=== PATIENT | male | born 1985 | race African-American/Black ===

== ENCOUNTER 2018-07-04 10:43 | Inpatient (IN) | payer OTHER ==
[2018-07-04] MEDS ORDERED: Morphine 4 MG/ML VIAL ONE (12:01)
[2018-07-04 12:22] LABS: #Lymphocytes 0.8 thou/uL (1.20-3.40); #Monocytes 0.6 thou/uL (0.11-0.59); #Neutrophils 7.2 thou/uL (1.40-6.50); %Basophils 0.1 % (0.0-1.0); %Eosinophils 0.2 % (0.0-10.0); %Lymphocytes 9.3 % (21.0-51.0); %Neutrophils 83.3 % (42.0-75.0); Hemoglobin 12.6 g/dL (14.0-18.0); Mean Corpuscular HGB CONC 32.2 g/dL (32.0-36.0); Mean Corpuscular Hemoglobin 30.2 pg (27.0-31.0); Mean Corpuscular Volume 93.8 fL (78.0-98.0); Mean Platelet Volume 8.8 fL (7.4-10.4); Platelet Count 179 thou/uL (130-400); RBC Distribution Width 10.9 % (11.5-14.5); Red Blood Cell (RBC) Count 4.15 mill/uL (4.70-6.10); White Blood Cell (WBC) Count 8.6 thou/uL (4.8-10.8)
[2018-07-04 12:30] LABS: INR-International Normal Ratio 1.1; PTT 28.3 SEC (22.9-36.1); Prothrombin Time 14.3 SEC (12.0-14.7)
[2018-07-04 12:46] LABS: Anion Gap 12 mmol/L (10-20); BUN (Urea Nitrogen) 10 mg/dL (8.9-20.6); Calc. Creatinine Clearance 0 mL/min (70-130); Calcium 8.7 mg/dL (7.8-10.44); Carbon Dioxide 24 mmol/L (22-29); Chloride 104 mmol/L (98-107); Estimated GFR-MDRD Greater than 90; Glucose 126 mg/dL (70-105); Potassium 4.5 mmol/L (3.5-5.1); Sodium 135 mmol/L (136-145)
[2018-07-04] MEDS ORDERED: CEFAZOLIN/Water 2 GM/20 ML SYRINGE SLOW IVP SCH ×2 (13:00→20:30)
[2018-07-04] MEDS ORDERED: Ondansetron PF 4 MG/2 ML Vial ONE (13:17)
[2018-07-04] MEDS ORDERED: ePHEDrine/0.9% NaCl/PF SYRINGE 50 mg/10 ml ONE (13:17)
[2018-07-04] MEDS ORDERED: PROPOFOL 200 MG/20 ML VIAL ONE (13:17)
[2018-07-04] MEDS ORDERED: Metoclopramide HCl 10 MG/2 ML VIAL ONE (13:17)
[2018-07-04] MEDS ORDERED: Glycopyrrolate 0.2 MG/ML 5 ML SYRINGE ONE (13:17)
[2018-07-04] MEDS ORDERED: PHENYLEPHRINE-NS 100 MCG/ML 10 ML SYRINGE ONE ×2 (13:17→19:30)
[2018-07-04] MEDS ORDERED: Dexamethasone 20 MG/5 ML VIAL ONE (13:17)
[2018-07-04] MEDS ORDERED: Naloxone HCl 0.4 mg/ml Vial ONE (13:17)
[2018-07-04] MEDS ORDERED: Lidocaine 1% PF 5 ML VIAL ONE (13:17)
--- NOTE | 2018-07-04 13:32 | RAD ---
2 VIEWS LEFT FEMUR: Date: 07/04/18 COMPARISON: None. HISTORY: Left femur deformity and pain. FINDINGS: Two views of the left femur show a spiral fracture of the proximal aspect of the femoral diaphysis wi th a central butterfly fragment. This is moderately displaced. No dislocation of the knee or hip seen . IMPRESSION: Proximal left femur fracture. POS: [facility]
--- NOTE | 2018-07-04 13:34 | RAD ---
CHEST ONE VIEW: History: Fall Comparison: None FINDINGS: Lungs are clear. No pneumothorax or effusion. Cardiac silhouette and mediastinal contours are within normal limits. IMPRESSION: No acute intrathoracic abnormality. POS: OFF
--- NOTE | 2018-07-04 13:34 | CON ---
DATE OF CONSULTATION: 07/04/2018 REQUESTING PHYSICIAN: Kameron Chao DO. CONSULTING PHYSICIAN: Ric Frazier M.D. REASON FOR CONSULTATION: Left hip fracture. HISTORY OF PRESENT ILLNESS: This is a 33-year-old male who is an inmate presented this morning after a transfer from [facility]. Patient states that he lives in the holiday unit in [place], [place]. He was sleeping on his top bunk when he had a dream about an animal chasing him an d rolled out of the bunk fell landing onto his left side. He was found to have a left subtrochanteri c femur fracture upon further evaluation once the Emergency Department and was transferred here for [facility] level of care. Patient denies any other injury at the time of the fall. He denies hitting his head. He denies any loss of consciousness. He denies any numbness or tingling in the left lower ex tremity. His pain is made worse by movement and improved with rest. PAST MEDICAL HISTORY: The patient denies any past medical history. PAST SURGICAL HISTORY: The patient denies any past surgical history. SOCIAL HISTORY: The patient resides in the holiday unit in [place], [place]. He denies any alcohol use, tobacco use or illicit drug use. He does report a history of cigarette smoking and marijuana u se before he was incarcerated. FAMILY HISTORY: Reviewed and noncontributory. ALLERGIES: No known drug allergies. REVIEW OF SYSTEMS: Ten point review of systems otherwise negative except for as stated above. PHYSICAL EXAMINATION: VITAL SIGNS: Blood pressure of 153/89, pulse of 86, respiratory rate of 18, temperature 98.7 degrees . GENERAL: The patient is awake and alert. He is in no acute distress. He is lying supine on the ER stretcher. There is a security present in the room and at the bedside. He is handcuffed. He is ple asant and cooperative with exam findings today. He answers all questions appropriately. HEENT: Normocephalic, atraumatic. NECK: Supple. Trachea midline. Breathing is nonlabored. EXTREMITIES: The left lower extremity was evaluated. There is a knee immobilizer intact. Patient h as a palpable dorsalis pedis pulse. He is able to flex and extend at the ankle and move all toes. E HL is intact. Sensation intact distally. Skin intact overlying the fracture site. All other extrem ities examined and there are no other signs of trauma. RADIOGRAPHIC FINDINGS: Today including 2 views of the left femur show evidence of a proximal third a nd subtrochanteric fracture that appears segmental and spiral in nature. This fracture fragment is d isplaced. ASSESSMENT: Left proximal femur fracture. PLAN: At this point, we have discussed surgical intervention with the patient in order to restore fu nction and preserve his anatomy in order for him to be able to mobilize. Risks, benefits, and altern atives of the surgery discussed at length with the patient today. These include but are not limited to infection, bleeding, neurovascular injury, nonunion and malunion. He is amenable to go forward [facility] surgery. Case discussed and agreed in length with Dr. Frazier as well today. The patient will be admitted to [facility]. We will plan for surgery this afternoon. He will remain n.p.o.
[2018-07-04] MEDS ORDERED: Ondansetron ODT 4 MG TAB PO PRN (13:54)
[2018-07-04] MEDS ORDERED: Dextrose 50% Abboject 50 ML SYRINGE SLOW IVP PRN (13:54)
[2018-07-04] MEDS ORDERED: Ondansetron PF 4 MG/2 ML Vial IVP PRN (13:54)
[2018-07-04] MEDS ORDERED: Cyclobenzaprine 10 MG TAB PO PRN (13:54)
[2018-07-04] MEDS ORDERED: Dextrose 5% in Water 1,000 ML IV PRN (13:54)
[2018-07-04] MEDS ORDERED: CEFAZOLIN/Water 2 GM/20 ML SYRINGE ONE (16:49)
[2018-07-04] MEDS ORDERED: Fentanyl 100 MCG/2 ML VIAL ONE ×3 (17:13→18:43)
--- NOTE | 2018-07-04 17:45 | HP ---
DATE OF ADMISSION: 07/04/2018 ATTENDING PHYSICIAN: Dr. Montez. TRAUMA ACTIVATION: Not applicable. HISTORY OF PRESENT ILLNESS: Harley Rucker is a 33-year-old gentleman who presented to [facility] Room status post fall from bunk bed. Per patient, he fell out of his top bunk bed earlier this morning landing on his left side. The patient had immediate onset of left hip pain. He was brought to [facility] and evaluated and found to have a proximal left femur fracture. The pa hattie has been seen and evaluated by Orthopedic Surgery and Trauma Services was asked to admit. Upon my evaluation, the patient states the pain has been well controlled. He vocalizes no other complain t. ALLERGIES: None. HOME MEDICATIONS: None. CHRONIC MEDICAL ILLNESSES: The patient denies. PAST SURGICAL HISTORY: The patient denies. SOCIAL HISTORY: The patient is a prisoner. Denies tobacco, alcohol, or illicit drug use. FAMILY HISTORY: Significant for grandmother with breast cancer and father with prostate cancer. REVIEW OF SYSTEMS: A 10-point review of systems was performed by the team and negative except as ind icated in the HPI. PHYSICAL EXAMINATION: VITAL SIGNS: Include blood pressure 142/86, pulse 82, respirations 16, O2 sat 98% on room air. GENERAL: Well-developed male in no acute distress, resting in bed. HEAD: Normocephalic, atraumatic. EYES: Pupils are PERRL. Extraocular movements are intact. NECK: Supple. Trachea is midline. CHEST/PULMONARY: Atraumatic. Normal work of breathing, symmetric rise. LUNGS: Clear to auscultation bilaterally. CARDIOVASCULAR: Regular rate and rhythm. GASTROINTESTINAL: Abdomen is soft, nontender, nondistended, atraumatic. Bowel sounds are positive. MUSCULOSKELETAL: Bilateral upper extremities appear within normal limits. Right lower extremity anali ears within normal limits. Left lower extremity is shortened and externally rotated with range of mo tion limited secondary to pain. Pulses are 2+ bilaterally. NEUROLOGIC: GCS is 15 and no focal deficit is noted. LABORATORY DATA: WBC 8.6, hemoglobin 12.6, hematocrit 39.0 and platelet count 179. INR 1.1. Sodium 135, potassium 4.5, chloride 104, carbon dioxide 24, BUN 10, creatinine 0.87, glucose 126. RADIOLOGIC FINDINGS: Chest x-ray without acute cardiopulmonary process. Femur x-ray was read by [facility] as having a spiral comminuted proximal femur fracture. ASSESSMENT: 1. Status post fall approximately 5-6 feet. 2. Left femur fracture. 3. Acute traumatic pain. PLAN: Admit to Trauma Services. Patient's last p.o. intake was approximately 10:00 p.m. last night. Orthopedic Surgery plans for operative intervention to his injury later today. Perioperative pain management with p.o. and IV analgesics. Postoperative PT and OT. Gentle IV fluid hydration. Plan o f care was discussed with the patient at bedside. All questions were answered at the time of this di ctation. Trauma attending has been notified of admission.
[2018-07-04] MEDS ORDERED: traMADol HCl 50 MG TAB PO SCH (18:00)
[2018-07-04] MEDS ORDERED: Albumin 5% 500 ML ONE (18:58)
[2018-07-04 19:02] LABS: Hemoglobin 10.9 g/dL (14.0-18.0)
[2018-07-04] MEDS ORDERED: HYDROmorphone 2 MG/ML VIAL ONE (19:04)
[2018-07-04] MEDS ORDERED: Meperidine HCl/PF 25 MG/ML VIAL SLOW IVP PRN ×2 (19:42→20:30)
[2018-07-04] MEDS ORDERED: Promethazine HCl 25 MG/ML VIAL SLOW IVP PRN ×2 (19:42→20:31)
[2018-07-04] MEDS ORDERED: HYDROmorphone 2 MG/ML VIAL SLOW IVP PRN ×2 (19:42→20:30)
[2018-07-04] MEDS ORDERED: Promethazine HCl 25 MG/ML VIAL IM PRN ×2 (19:42→20:31)
--- NOTE | 2018-07-04 21:22 | RAD ---
LEFT FEMUR INTRAOPERATIVE FLUOROSCOPY TWO VIEWS: 07/04/18 HISTORY: Fracture. FINDINGS/IMPRESSION: Intraoperative fluoroscopy was provided for internal fixation as performed by Dr. Frazier. Multiple sp ot fluoroscopic images show long quin and compression nail transfixing the femur. POS: [facility]
--- NOTE | 2018-07-04 21:38 | HP ---
HISTORY OF PRESENT ILLNESS: A 33-year-old black male fell off his monk in group home, fractured his left femur, seen in the emergency room and evaluated, seen by KULWINDER Rodriguez. ALLERGIES: None. TOBACCO: None. ALCOHOL: None. MEDICATIONS: None. PAST SURGICAL AND MEDICAL HISTORY: Noncontributory. PHYSICAL EXAMINATION: VITAL SIGNS: Heart rate 94, saturation 96%, respirations 18, temperature 98.7 degrees. LUNGS: Clear to auscultation. CARDIAC: Regular rate and rhythm without murmur or gallop. ABDOMEN: Soft, nontender. EXTREMITIES: Splint in left femur. Palpable pedal pulses. Neurovascular intact. ASSESSMENT AND PLAN: Left femur fracture, open reduction internal fixation per Dr. Frazier. DISPOSITION: Mobility per Dr. Frazier.
[2018-07-04] MEDS: Sodium Chloride 0.9% 1,000 ML IV SCH ×2 (21:48→22:51)
[2018-07-04] MEDS: Ketorolac Tromethamine 30 MG/ML VIAL IVP SCH (21:48)
[2018-07-04] MEDS: Acetaminophen 500 MG TAB PO SCH (21:48)
[2018-07-04 22:40] VITALS: BMI 23.1
[2018-07-04] MEDS: CEFAZOLIN 2 GM/50 ML-DEXTROSE 2 GM in Premix Bag 1 BAG IVPB SCH (23:30)
--- NOTE | 2018-07-05 00:11 | OP ---
PREOPERATIVE DIAGNOSIS: Comminuted femoral shaft fracture. POSTOPERATIVE DIAGNOSIS: Comminuted femoral shaft fracture. PROCEDURES: ORIF, left femur intramedullary nail. SURGEON: Ric Frazier M.D. ROLLER ENGRAVER: Flavia CUENCA. IMPLANT USED: Synthes trochanteric femoral nail and 3 cables. BLOOD LOSS: 1400. BLOOD RETURNED: None. COMPLICATIONS: None. DESCRIPTION OF PROCEDURE: Patient was taken to operating room, where general anesthesia was induced. He was placed on the fracture table. This was a very complex fracture extending from the lesser tr ochanter all the way down to below the isthmus of the femur. There was no way to reduce this by ____ _ was markedly displaced. After prepping and draping and receiving preoperative Ancef, I made an exp osure laterally. I did a subvastus approach. With some difficulty, I was able to free the fragments up and with a combination of traction, rotation, direct manipulation, implants fragments. I was abl e to reduce the fragments and hold them with cerclage wires. Once this was performed, I made a stand vicky approach to the greater trochanter. Dissection was carried down to the greater trochanter. I pa lpated trochanter, opened it with a reamer and then reamed up to 13 mm. I checked on biplane fluoros copy to make sure the fragments did not displace. I then inserted the nail and placed the proximal a nd distal screws in the usual fashion. Irrigation was performed. Hemostasis was obtained as well as possible. The fascia was closed with #2 Vicryl, subcutaneously was closed with 2-0 Vicryl, the skin was closed with david. Sterile dressings applied. There were no complications.
[2018-07-05] MEDS: traMADol HCl 50 MG TAB PO SCH ×5 (00:15→23:32)
[2018-07-05] MEDS: Ketorolac Tromethamine 30 MG/ML VIAL IVP SCH ×2 (00:16→05:34)
[2018-07-05] MEDS: Acetaminophen 500 MG TAB PO SCH ×5 (00:16→23:32)
[2018-07-05] MEDS: Morphine 2 MG/ML SYRINGE IVP PRN ×2 (01:54→08:26)
[2018-07-05] MEDS ORDERED: Dextrose 5% in Water 1,000 ML IV PRN (03:45)
[2018-07-05] MEDS ORDERED: Dextrose 50% Abboject 50 ML SYRINGE SLOW IVP PRN (03:46)
[2018-07-05] MEDS ORDERED: Ondansetron ODT 4 MG TAB PO PRN (03:49)
[2018-07-05] MEDS ORDERED: Ondansetron PF 4 MG/2 ML Vial IVP PRN (03:50)
[2018-07-05] MEDS ORDERED: Sodium Chloride 0.9% 1,000 ML IV SCH (04:00)
[2018-07-05 06:31] LABS: #Lymphocytes 1.2 thou/uL (1.20-3.40); %Basophils 0.2 % (0.0-1.0); %Eosinophils 0.1 % (0.0-10.0); %Lymphocytes 7.9 % (21.0-51.0); %Monocytes 6.8 % (0.0-10.0); Hemoglobin 6.8 g/dL (14.0-18.0); Mean Corpuscular HGB CONC 32.3 g/dL (32.0-36.0); Mean Corpuscular Hemoglobin 30.6 pg (27.0-31.0); Mean Corpuscular Volume 94.9 fL (78.0-98.0); Mean Platelet Volume 8.6 fL (7.4-10.4); PLT Morphology Comment Appears Adequate; Platelet Count 160 thou/uL (130-400); RBC Distribution Width 10.8 % (11.5-14.5); RBC Morphology Normal; Red Blood Cell (RBC) Count 2.23 mill/uL (4.70-6.10); White Blood Cell (WBC) Count 15.3 thou/uL (4.8-10.8)
[2018-07-05] MEDS: CEFAZOLIN 2 GM/50 ML-DEXTROSE 2 GM in Premix Bag 1 BAG IVPB SCH ×2 (08:26→16:55)
[2018-07-05] MEDS: Ibuprofen 800 MG TAB PO SCH ×2 (10:23→18:10)
[2018-07-05] MEDS: Cyclobenzaprine 10 MG TAB PO PRN (10:23)
[2018-07-05] MEDS: Ferrous Sulfate 325 MG TAB PO SCH ×2 (10:23→16:55)
[2018-07-05] MEDS: Ascorbic Acid 500 mg Chewable Tablet PO SCH ×2 (10:23→22:05)
[2018-07-05] MEDS ORDERED: Senokot S 8.6-50 MG TAB PO SCH (11:30)
[2018-07-05] MEDS ORDERED: Polyethylene Glycol 3350 17 GM Packet PO SCH (11:30)
--- NOTE | 2018-07-05 13:31 | PRG ---
DATE OF SERVICE: 07/05/2018 SUBJECTIVE: This is a 33-year-old male status post fall resulting in left femur fracture, postop day #1. Overnight, pain was controlled; however, he did require IV pain medication at that time. This morning, the patient states that his pain is a 7/10 consistently despite pain medications; however, t he patient appears somewhat drowsy upon my evaluation. Additionally, the patient's hemoglobin droppe d to 6.8 this morning. Otherwise, he vocalizes no complaint. OBJECTIVE: VITAL SIGNS: Temperature 98.4, pulse 115, respirations 16, O2 sat 98% on room air, blood pressure 13 1/84. GENERAL: Resting in bed, in no acute distress. PULMONARY: Normal work of breathing, symmetric rise. LUNGS: Clear to auscultation bilaterally. CARDIOVASCULAR: Tachycardic, no obvious murmurs, rubs or gallops. GASTROINTESTINAL: Abdomen is soft, nontender, nondistended. MUSCULOSKELETAL: Moves all extremities x4. Pulses are 2+ bilaterally. NEUROLOGIC: No focal deficit is noted. LABORATORY DATA: WBC 15.3, hemoglobin 6.8, hematocrit 21.1, platelet count 160. Sodium 135, potassi um 4.5, chloride 104, carbon dioxide 24, BUN 10, creatinine 0.87, glucose 126. ASSESSMENT: 1. Status post fall greater than 3 feet. 2. Left femoral fracture, postop day #1. 3. Acute traumatic pain. 4. Acute blood loss anemia, symptomatic. PLAN: Transfuse 2 units of PRBC. Initiate vitamin C and iron supplementation. Recheck a.m. labs. Postop PT and OT to be initiated. Importance of adhering to pain regimen discussed as well as import ance of participation in physical therapy. If patient's pain is uncontrolled and he is unable to par ticipate in therapy, we will increase pain regimen at that time. The patient has been discussed with trauma attending.
[2018-07-05] MEDS: Gabapentin 300 MG CAP PO SCH ×2 (16:55→22:06)
[2018-07-05] MEDS: Senokot S 8.6-50 MG TAB PO SCH (22:06)
[2018-07-06] MEDS: Ibuprofen 800 MG TAB PO SCH ×3 (02:19→17:30)
[2018-07-06] MEDS: traMADol HCl 50 MG TAB PO SCH ×4 (05:13→23:34)
[2018-07-06] MEDS: Acetaminophen 500 MG TAB PO SCH ×4 (05:14→23:33)
[2018-07-06 06:40] LABS: #Eosinphils 0.1 thou/uL (0.0-0.7); #Lymphocytes 2.2 thou/uL (1.20-3.40); #Monocytes 0.8 thou/uL (0.11-0.59); #Neutrophils 5.9 thou/uL (1.40-6.50); %Basophils 0.3 % (0.0-1.0); %Eosinophils 1.1 % (0.0-10.0); %Monocytes 9.1 % (0.0-10.0); %Neutrophils 65.6 % (42.0-75.0); Hemoglobin 7.2 g/dL (14.0-18.0); Mean Corpuscular Hemoglobin 30.5 pg (27.0-31.0); Mean Corpuscular Volume 92.4 fL (78.0-98.0); Mean Platelet Volume 9.1 fL (7.4-10.4); PLT Morphology Comment Appears Decreased; Platelet Count 115 thou/uL (130-400); RBC Distribution Width 11.6 % (11.5-14.5); Red Blood Cell (RBC) Count 2.38 mill/uL (4.70-6.10)
[2018-07-06] MEDS: Gabapentin 300 MG CAP PO SCH ×3 (08:47→20:11)
[2018-07-06] MEDS: Polyethylene Glycol 3350 17 GM Packet PO SCH ×2 (08:47→08:56)
[2018-07-06] MEDS: Senokot S 8.6-50 MG TAB PO SCH ×2 (08:47→20:10)
[2018-07-06] MEDS: Ascorbic Acid 500 mg Chewable Tablet PO SCH ×2 (08:47→20:11)
[2018-07-06] MEDS: Ferrous Sulfate 325 MG TAB PO SCH ×2 (08:48→17:30)
[2018-07-06] MEDS ORDERED: Polyethylene Glycol 3350 17 GM Packet PO SCH (11:13)
[2018-07-06] MEDS: Cyclobenzaprine 10 MG TAB PO PRN (15:18)
--- NOTE | 2018-07-06 18:27 | PRG ---
DATE OF SERVICE: 07/06/2018 SUBJECTIVE: This is a 33-year-old male postop day #2 status post open reduction and internal fixatio n of femur fracture. There were no acute overnight events. The patient is status post 2 units PRBC. His hemoglobin remains low this morning and he is tachycardic. He states that his pain is controll ed at rest, but is 9/10 with activity. OBJECTIVE: VITAL SIGNS: Temperature 98.2, pulse 102, respirations 18, O2 sat 93%-95% on room air, blood pressur e 110/68. GENERAL: Well-developed male in no acute distress, resting in bed. PULMONARY: Normal work of breathing. Symmetric rise. CARDIOVASCULAR: Regular rate and rhythm. GASTROINTESTINAL: Abdomen is soft, nontender, nondistended. MUSCULOSKELETAL: Moves all extremities x4. NEUROLOGIC: No focal deficit is noted. LABORATORY DATA: WBC 9.0, hemoglobin 7.2, hematocrit 22.0, platelet count 115. ASSESSMENT: 1. Status post fall greater than 3-5 feet. 2. Acute traumatic pain. 3. Left femur fractures. 4. Acute blood loss anemia, symptomatic. PLAN: The patient was reminded that he does have p.r.n. pain medications for pain, particularly musc le relaxants as his primary complaint was muscle cramping or what sounded like muscle cramping. Don sfuse 1 unit of PRBC for symptomatic anemia. Recheck a.m. labs. Importance of adhering to bowel reg imen in the setting of limited mobility and narcotic pain medications impressed upon the patient. He vocalizes understanding. If hemoglobin and hematocrit are improved tomorrow and pain is controlled, patient will likely be a candidate for discharge. Plan of care was discussed with the patient and t he guards at bedside. All questions were answered at the time of this dictation. Of note, the patie nt should not be assigned to a top bunk when he returns in residential until cleared by Orthopedic Surgery . Patient was discussed with trauma attending.
[2018-07-07] MEDS: Ibuprofen 800 MG TAB PO SCH ×3 (01:47→18:16)
[2018-07-07] MEDS: Acetaminophen 500 MG TAB PO SCH ×4 (05:54→23:38)
[2018-07-07] MEDS: traMADol HCl 50 MG TAB PO SCH ×4 (05:54→23:38)
[2018-07-07 06:08] LABS: #Eosinphils 0.2 thou/uL (0.0-0.7); #Lymphocytes 1.7 thou/uL (1.20-3.40); #Monocytes 0.5 thou/uL (0.11-0.59); %Basophils 0.4 % (0.0-1.0); %Eosinophils 2.3 % (0.0-10.0); %Lymphocytes 23.4 % (21.0-51.0); %Monocytes 6.4 % (0.0-10.0); %Neutrophils 67.6 % (42.0-75.0); Hemoglobin 7.6 g/dL (14.0-18.0); Mean Corpuscular HGB CONC 32.5 g/dL (32.0-36.0); Mean Corpuscular Hemoglobin 30.2 pg (27.0-31.0); Mean Corpuscular Volume 93.1 fL (78.0-98.0); Mean Platelet Volume 8.2 fL (7.4-10.4); Platelet Count 136 thou/uL (130-400); RBC Distribution Width 11.7 % (11.5-14.5); Red Blood Cell (RBC) Count 2.51 mill/uL (4.70-6.10); White Blood Cell (WBC) Count 7.4 thou/uL (4.8-10.8)
[2018-07-07 06:30] LABS: Anion Gap 8 mmol/L (10-20); BUN (Urea Nitrogen) 9 mg/dL (8.9-20.6); Calc. Creatinine Clearance 144 mL/min (70-130); Carbon Dioxide 32 mmol/L (22-29); Chloride 101 mmol/L (98-107); Estimated GFR-MDRD Greater than 90; Glucose 129 mg/dL (70-105); Magnesium 1.7 mg/dL (1.6-2.6); Phosphorus 2.9 mg/dL (2.3-4.7); Potassium 3.3 mmol/L (3.5-5.1); Sodium 138 mmol/L (136-145)
[2018-07-07] MEDS: Senokot S 8.6-50 MG TAB PO SCH ×2 (08:55→20:48)
[2018-07-07] MEDS: Ascorbic Acid 500 mg Chewable Tablet PO SCH ×2 (08:55→20:47)
[2018-07-07] MEDS: Gabapentin 300 MG CAP PO SCH ×3 (08:55→20:48)
[2018-07-07] MEDS: Ferrous Sulfate 325 MG TAB PO SCH ×2 (08:55→18:16)
[2018-07-07] MEDS: Polyethylene Glycol 3350 17 GM Packet PO SCH (08:56)
--- NOTE | 2018-07-07 15:53 | PRG-2 ---
DATE OF SERVICE: 07/07/2018 RESIDENT: Erica Ray M.D. SUPERVISING ATTENDING: Dr. Simpson. Subjective: This is a 33-year-old male postop day #3 status post open reduction and internal fixation of femur fracture after a fall from a bunk bed. There were no acute overnight events. The patient is status post 2 units PRBC units. Hemoglobin this morning has improved and the patient's vital signs within normal limits. The patient states that his pain has been controlled at rest, but it is 8/10 with activity. OBJECTIVE: VITAL SIGNS: Temperature 98.1, pulse 98, respirations 16, O2 saturation 94% on room air, BP 115/73. GENERAL: Well-developed male in no acute distress, resting in bed, eating breakfast. PULMONARY: Normal work of breathing, bilateral symmetrical chest rise. CARDIOVASCULAR: Regular rate and rhythm. No rubs or gallops. ABDOMEN: Soft, nontender, nondistended. MUSCULOSKELETAL: Free range of motion in all extremities x4. NEUROLOGIC: Nonfocal exam. LABORATORY DATA: WBC 7.4, hemoglobin 7.6, hematocrit 23.4, platelets 136. Sodium 138, potassium 3.3, chloride 101, carbon dioxide 32, anion gap 8, BUN 9, creatinine 0.82, glucose 129, calcium 8, phosphorus 2.9, magnesium 1.7. ASSESSMENT: 1. Status post fall greater than 3-5 feet. 2. Acute traumatic pain. 3. Left femur fractures. 4. Acute blood loss anemia, symptomatic, improved. PLAN: The patient's pain has been well controlled with p.o. pain medication. After transfusion of 1 unit of PRBCs, hemoglobin responded and is now 7.6. We will continue to encourage PT/OT with ambulation. Importance of adherence of bowel regimen in the setting of limited mobility and narcotic pain medications impressed upon the patient. The patient was evaluated and examined by Dr. Simpson at the bedside. The plan was discussed between the patient and Dr. Simpson. The patient acknowledges understanding and is in agreement with the plan. As the patient's hemoglobin and hematocrit are improved today, the patient could be discharged. Due to patient being incarcerated, he is needing a medical facility, case management is helping to facilitate getting the patient there. We will likely be able to be discharged in the next day or two. Orthopedic surgery has given the okay for this patient to be discharged as well. JID
[2018-07-07] MEDS: Cyclobenzaprine 10 MG TAB PO PRN (16:24)
[2018-07-08] MEDS: Ibuprofen 800 MG TAB PO SCH ×3 (02:34→18:11)
[2018-07-08] MEDS: Acetaminophen 500 MG TAB PO SCH ×3 (05:46→18:10)
[2018-07-08] MEDS: traMADol HCl 50 MG TAB PO SCH ×3 (05:47→18:11)
[2018-07-08 07:39] LABS: #Basophils 0.1 thou/uL (0.0-0.2); #Eosinphils 0.2 thou/uL (0.0-0.7); #Monocytes 0.5 thou/uL (0.11-0.59); #Neutrophils 4.3 thou/uL (1.40-6.50); %Basophils 1.4 % (0.0-1.0); %Eosinophils 2.7 % (0.0-10.0); %Lymphocytes 27.6 % (21.0-51.0); %Monocytes 7.4 % (0.0-10.0); %Neutrophils 60.9 % (42.0-75.0); Mean Corpuscular HGB CONC 33.1 g/dL (32.0-36.0); Mean Corpuscular Hemoglobin 30.9 pg (27.0-31.0); Mean Corpuscular Volume 93.5 fL (78.0-98.0); Mean Platelet Volume 7.5 fL (7.4-10.4); Platelet Count 198 thou/uL (130-400); RBC Distribution Width 11.8 % (11.5-14.5); Red Blood Cell (RBC) Count 2.57 mill/uL (4.70-6.10); White Blood Cell (WBC) Count 7.1 thou/uL (4.8-10.8)
[2018-07-08 07:58] LABS: Anion Gap 9 mmol/L (10-20); BUN (Urea Nitrogen) 8 mg/dL (8.9-20.6); Calc. Creatinine Clearance 151 mL/min (70-130); Calcium 8.3 mg/dL (7.8-10.44); Carbon Dioxide 31 mmol/L (22-29); Chloride 101 mmol/L (98-107); Estimated GFR-MDRD Greater than 90; Glucose 95 mg/dL (70-105); Potassium 3.4 mmol/L (3.5-5.1); Sodium 138 mmol/L (136-145)
[2018-07-08] MEDS: Ferrous Sulfate 325 MG TAB PO SCH ×2 (10:29→18:11)
[2018-07-08] MEDS: Senokot S 8.6-50 MG TAB PO SCH (10:30)
[2018-07-08] MEDS: Ascorbic Acid 500 mg Chewable Tablet PO SCH (10:30)
[2018-07-08] MEDS: Gabapentin 300 MG CAP PO SCH ×2 (10:30→18:11)
[2018-07-08] MEDS: Polyethylene Glycol 3350 17 GM Packet PO SCH (10:33)
[2018-07-08 10:56] LABS: Magnesium 1.7 mg/dL (1.6-2.6); Phosphorus 3.5 mg/dL (2.3-4.7)
[2018-07-08] MEDS ORDERED: Potassium Chloride 20 MEQ TAB PO SCH (12:45)
--- NOTE | 2018-07-08 15:08 | PRG-2 ---
DATE OF SERVICE: 07/08/2018 RESIDENT: Erica Ray M.D. SUPERVISING ATTENDING: Dr. Pelon Simpson SUBJECTIVE: This is a 33-year-old male postop day #4 from an ORIF of the femur fracture after a fall from bunk bed. No acute events overnight. The patient is status post 2 units of PRBC units. The patient states that his pain has been controlled at rest. The patient has been working with PT/OT and endorses pain with activity. OBJECTIVE: VITAL SIGNS: Temperature 98.4, pulse 102, respirations 16, O2 saturation 94% on room air, BP 112/63. GENERAL: Well-developed male in no acute distress, resting in bed, eating breakfast. PULMONARY: Normal work of breathing, bilateral symmetrical chest rise. CARDIOVASCULAR: Regular rate and rhythm. No murmurs, rubs or gallops. GASTROINTESTINAL: Soft, nontender, nondistended. MUSCULOSKELETAL: Free range of motion in all extremities x4. NEUROLOGIC: Nonfocal exam. LABORATORY DATA: WBC 7.1, hemoglobin 8, hematocrit 24.0, platelet count 198. Sodium 138, potassium 3.4, chloride 101, carbon dioxide 31, BUN 8, creatinine 0.78, calcium 8.3, phosphorus 3.5, magnesium 1.7. ASSESSMENT: 1. Status post fall greater than 3-5' feet. 2. Acute traumatic pain. 3. Left femur fracture. 4. Acute blood loss, improved. 5. Hypokalemia. PLAN: The patient's pain continues to be well controlled with p.o. pain medication. The patient is status post transfusion and hemoglobin has responded appropriately. Electrolytes replaced as needed and will continue to do so. We will continue to encourage PT/OT and ambulation. Importance of adherence of bowel regimen in the setting of limited mobility and narcotic pain medications and impressed upon the patient. The patient remains ready for discharge. Due to patient being incarcerated, he is needing a medical bed at [facility]. Case management is assisting us with getting the patient placed there. Per case management: Note, spoke to Starla Kamara at [facility] who is awaiting bed availability. Orthopedic Surgery has given the okay for this patient to be discharged as well. The patient was seen and examined by Dr. Simpson during morning rounds today. Patient acknowledges pending of the plan and all questions were asked and answered. KORY
[2018-07-08 19:46] VITALS: BP 100/68; TEMP 98
--- NOTE | 2018-07-09 06:58 | DIS-2 ---
DATE OF ADMISSION: 07/04/2018 DATE OF DISCHARGE: 07/08/2018 RESIDENT: Dr. Erica Ray SUPERVISING ATTENDING: Dr. Pelon Simpson CONSULTATIONS: Case management PT/OT, Orthopedics. PROCEDURES: Open reduction and internal fixation, left femur intramedullary nail. PRIMARY DIAGNOSIS: Left femur fracture. SECONDARY DIAGNOSES: None. DISCHARGE MEDICATIONS: 1. Acetaminophen (Tylenol) extra strength 1000 mg oral every 6 hours. 2. Ibuprofen (Motrin) 800 mg oral q.8 hours. 3. Tramadol (Ultram) 100 mg oral every 6 hours. DISCONTINUED MEDICATIONS: None. HISTORY OF PRESENT ILLNESS/HOSPITAL COURSE: This is a 33-year-old male who [facility] fracturing his left femur. The patient underwent open reduction internal fix ation of the left femur by Dr. Frazier. The patient tolerated the procedure well with no complication s. The patient participated in PT/OT throughout his stay. He noted 7-8/10 pain during his PT/OT ses sions. This pain was able to be controlled with p.o. medications upon discharge. Postop day #1, the patient's hemoglobin dropped to 6.8. The patient received 2 units of PRBCs as well as vitamin C and iron supplementation. The patient's hemoglobin responded appropriately. Electrolytes were replaced as needed. Case management was able to assist in getting the patient at a medical group home facility at [facility] in [place]. The patient was seen and examined by Dr. Simpson on the day of discharge. The plan was discussed with the patient as well as Dr. Simpson who is in agreement. DISPOSITION: Stable. DISCHARGE INSTRUCTIONS: 1. Location: Medical group home facility at [facility] in [place]. 2. Diet: Regular. 3. Activity: Ad betsy with PT/OT. 4. Followup: Follow up with PCP in 2 weeks.
== END 2018-07-08 21:05 | DRG 481 ==
LOC: ERS 10:43 → SURG A 20:20
PROVIDERS: ADMIT Specialist; ATTEND Specialist
PROC: 0QS906Z Reposition Left Femoral Shaft with Intramedullary Internal Fixation Device, Open Approach (ICD-10-PCS; principal; 2018-07-04)
PROC: 30233N1 Transfusion of Nonautologous Red Blood Cells into Peripheral Vein, Percutaneous Approach (ICD-10-PCS; 2018-07-05)
DX: S72.352A Displaced comminuted fracture of shaft of left femur, initial encounter for closed fracture (principal); D62 Acute posthemorrhagic anemia; W06.XXXA Fall from bed, initial encounter; Y92.143 Cell of prison as the place of occurrence of the external cause; G89.11 Acute pain due to trauma; E87.6 Hypokalemia
CPT/HCPCS: 36415; 36430; 71045; 76001; 80048; 83735; 84100; 85025; 85610; 85730; 86850; 86900; 86901; 96374; C1713; C1769; G0390; G8978-GP-CL; G8979-GP-CJ; G8987-GO-CJ; G8988-GO-CI; J1100; J1170; J1885; J2001; J2270; J2310; J2405; J2704; J2765; J3010; P9016; P9045